=== PATIENT | female | born 1970 | race Caucasian/White ===

== ENCOUNTER 2022-07-07 19:37 | Emergency (ER) | payer BC ==
[2022-07-07 19:58] VITALS: TEMP 97.6; BMI 29.5
[2022-07-07 20:27] LABS: HEMATOCRIT 48.6 % (32.4-45.2); HEMOGLOBIN 16.6 G/dL (10.7-15.3); MCHC 34.2 g/dl (32.0-36.0); MEAN CELL VOLUME 87.7 fl (80-96); MEAN PLT VOLUME 7.4 fl (7.5-11.1); PLATELET COUNT 206.9 10^3/uL (134-434); RBC 5.54 10^6/uL (3.60-5.2); RDW 13.5 % (11.6-15.6); WHITE BLOOD COUNT 13.9 10^3/uL (4.0-10.8)
[2022-07-07 20:34] LABS: ALBUMIN 4.3 g/dl (3.4-5.0); BILIRUBIN,TOTAL 1.8 mg/dl (0.2-1); CALCIUM 9.5 mg/dl (8.5-10); CREATININE 0.8 mg/dl (0.55-1.3); TOT PROT 7.6 g/dl (6.4-8.2)
[2022-07-07 20:37] VITALS: BP 157/92; PULSE 96; RESP 16
[2022-07-07 22:10] LABS: LACTIC ACID 4.1 mmol/L (0.4-2.0)
[2022-07-07 23:06] LABS: COCAINE, UR NEGATIVE (NEGATIVE); OPIATES, URI NEGATIVE (NEGATIVE); PHENCYCLIDINE,URINE NEGATIVE (NEGATIVE); URINE BARBITURATES NEGATIVE (NEGATIVE)
[2022-07-07 23:16] LABS: METHADONE, UR NEGATIVE (NEGATIVE); URINE AMPHETAMINES NEGATIVE (NEGATIVE); URINE BENZODIAZEPINES NEGATIVE (NEGATIVE)
== END 2022-07-07 21:41 | disposition short-term general hospital (02) ==
LOC: FER 19:37
DX: I62.9 Nontraumatic intracranial hemorrhage, unspecified (principal)
CPT/HCPCS: 0241U-QW; 36415; 70450-TC; 71045-TC-FY; 80053; 80307; 81003; 82550; 83605; 84484; 85027; 93005; 99285-25

== ENCOUNTER 2023-02-12 18:36 | Emergency (ER) | payer BC ==
[2023-02-12 19:03] VITALS: BP 120/67; PULSE 102; RESP 19; TEMP 98.8; BMI 32.5
== END 2023-02-12 19:50 | disposition home or self-care (01) ==
LOC: FER 18:36
DX: R32 Unspecified urinary incontinence (principal)
CPT/HCPCS: 81003; 87086; 99283-25

== ENCOUNTER 2023-03-20 17:32 | Emergency (ER) | payer BC ==
[2023-03-20 18:03] VITALS: BP 119/68; PULSE 88; RESP 16; TEMP 97.8; BMI 32.5
[2023-03-20 19:49] LABS: INR 1.77 (0.83-1.09); PROTHROMBIN TIME (PATIENT) 20.4 SEC (9.7-13.0)
[2023-03-20 20:15] LABS: HEMATOCRIT 34.3 % (32.4-45.2); MCH 34.6 pg (25.7-33.7); MCHC 34.9 g/dl (32.0-36.0); MEAN CELL VOLUME 99.2 fl (80-96); MEAN PLT VOLUME 7.2 fl (7.5-11.1); PLATELET COUNT 83.9 10^3/uL (134-434); RBC 3.46 10^6/uL (3.60-5.2); RDW 15.9 % (11.6-15.6)
[2023-03-20 20:26] LABS: ACTIVATED PTT 28.5 SECONDS (25.2-36.5)
[2023-03-20 20:34] LABS: ANISOCYTOSIS 1+
[2023-03-20 20:35] LABS: PLATELET ESTIMATE SLT DECREASE
[2023-03-20 21:33] LABS: ALBUMIN 3.8 g/dl (3.4-5.0); BILIRUBIN,TOTAL 1.2 mg/dl (0.2-1); BLOOD UREA NITROGEN 12.6 mg/dl (7-18); CALCIUM 8.7 mg/dl (8.5-10.1); CREATININE 0.5 mg/dl (0.6-1.3); POTASSIUM 3.8 mmol/L (3.5-5.1); SGOT/AST 10.3 U/L (15-37); SGPT/ALT 33.3 U/L (7-52); TOT PROT 5.3 g/dl (6.4-8.2)
== END 2023-03-20 22:03 | disposition home or self-care (01) ==
LOC: FER 17:32
DX: R22.42 Localized swelling, mass and lump, left lower limb (principal)
CPT/HCPCS: 36415; 80053; 85027; 85610; 85730; 86850; 86900; 86901; 93971-TC; 99284-25